=== PATIENT | male | born 1985 | race African-American/Black ===

== ENCOUNTER 2017-03-10 02:04 | Emergency (ER) | payer OTHER ==
[~2017-03-10] VITALS: Ht 180.3 cm; Wt 80.7 kg
[2017-03-10] MEDS ORDERED: NKM (02:14)
[2017-03-10 02:20] VITALS: BP 152/90
[2017-03-10 04:50] VITALS: BP 152/90
--- NOTE | 2017-03-10 23:34 | Emergency Room Report ---
History of Present Illness General Chief Complaint: General Complaint Source: Patient Present Illness HPI 31YOM walk-in with concern for HIV exposure Got call last night that woman he had unprotected vaginal intercourse with 4 months ago was diagnosed with HIV He has had "some" unprotected sex since then with other partners Previous STD but not sure which one Denies dysuria, discharge, fever/chills, weight loss, night sweats Feels well otherwise Allergies: Coded Allergies: No Known Allergies (Unverified , 03/10/17) Patient History Past Medical History: none Past Surgical History: none Pertinent Family History: none Social History: Denies: smoking, alcohol use, drug use Immunizations: UTD Reviewed Nursing Documentation: PMH: Agreed, PSxH: Agreed Nursing Documentation-PMH Past Medical History: No Stated History Review of Systems All Other Systems: negative except mentioned in HPI Physical Exam Vital Signs Date Time Temp Pulse Resp B/P (MAP) Pulse Ox O2 Delivery O2 Flow Rate FiO2 03/10/17 02:08 98.1 83 16 152/90 100 Room Air Sp02 EP Interpretation: reviewed, normal General Appearance: normal inspection, well appearing, no apparent distress, alert Head: atraumatic ENT: normal ENT inspection, hearing grossly normal, normal voice Neck: normal inspection, full range of motion, supple, no bony tend Respiratory: normal inspection, lungs clear, normal breath sounds, no respiratory distress, no retraction, no wheezing Cardiovascular #1: regular rate, rhythm, no edema Gastrointestinal: normal inspection, normal bowel sounds, non tender, soft, no guarding, no hernia Genitourinary: no CVA tenderness Musculoskeletal: normal inspection, back normal, normal range of motion, Smooth' s Sign negative Neurologic: normal inspection, alert, oriented x3, responsive, [employer] III-XII nml as tested, speech normal Psychiatric: normal inspection, judgement/insight normal, mood/affect normal Skin: normal inspection, normal color, no rash Medical Decision Making Diagnostic Impression: Primary Impression: Sexually transmissible disease ER Course Exposure to patient with HIV+ Rapid HIV test NEGATIVE here Likely true negative since exposure was 4 months ago Advised might not indicate no exposure to more recent unprotected encounters Advised condom protection every time in future PMD followup as needed Last Vital Signs Date Time Temp Pulse Resp B/P (MAP) Pulse Ox O2 Delivery O2 Flow Rate FiO2 03/10/17 04:50 98.1 86 16 152/90 100 Room Air Status: improved Disposition: HOME, SELF-CARE Condition: Improved Patient Instructions: HIV Antibody Test ELLI DANIELLE M.D. Mar 10, 2017 23:34
== END 2017-03-10 04:50 | disposition home or self-care (01) ==
LOC: EMR 02:25
DX: Z20.2 Contact with and (suspected) exposure to infections with a predominantly sexual mode of transmission (principal)
CPT/HCPCS: 86703; 99283